=== PATIENT | male | born 1980 | race Two or more races ===

== ENCOUNTER 2025-06-23 17:54 | Emergency (ER) | payer OTHER ==
[~2025-06-23] VITALS: Ht 190.5 cm; Wt 108.9 kg
[2025-06-23] MEDS ORDERED: LOSARTAN POTASS50 MG (18:29)
[2025-06-23] MEDS ORDERED: DEXAMETHASONE SODIUM PHOSPHATE 4 MG/ML VIAL IM ONE (19:30)
[2025-06-23] MEDS ORDERED: ORPHENADRINE CITRATE 30 MG/ML AMPUL IM ONE (19:30)
[2025-06-23] MEDS ORDERED: KETOROLAC TROMETHAMINE 30 MG VIAL IM ONE (19:30)
== END 2025-06-23 20:53 | disposition home or self-care (01) ==
LOC: ER 17:54
DX: M54.89 Other dorsalgia (principal); M51.369 Other intervertebral disc degeneration, lumbar region without mention of lumbar back pain or lower extremity pain; I10 Essential (primary) hypertension